=== PATIENT | female | born 1950 | race Caucasian/White ===

== ENCOUNTER 2021-04-11 22:43 | Emergency (ER) | payer MEDICARE ==
[~2021-04-11] VITALS: Ht 167.6 cm; Wt 54.4 kg
--- NOTE | 2021-04-11 22:58 | NUR ---
Dr. Hernandez at bedside for MSE.
[2021-04-11] MEDS ORDERED: IV NORMAL SALINE 500 ML BAG IV ONE (23:15)
[2021-04-11] MEDS ORDERED: ONDANSETRON 4 MG/2 ML VIAL IV ONE (23:15)
[2021-04-11 23:18] LABS: HEMATOCRIT 32.8 % (31.2-41.9); MEAN CORPUSCULAR HEMOGLOBIN 27.5 uug (24.7-32.8); MEAN CORPUSCULAR VOLUME 83.7 fL (75.5-95.3); PLATELET COUNT (AUTO) 401 K/uL (179-408)
--- NOTE | 2021-04-11 23:18 | NUR ---
Xray at bedside.
[2021-04-11] MEDS ORDERED: ONDANSETRON 4 MG/2 ML VIAL ONE (23:20)
[2021-04-11 23:28] LABS: CREATININE 0.8 mg/dL (0.6-1.3); POTASSIUM 4.1 mmol/L (3.5-5.1)
--- NOTE | 2021-04-11 23:54 | NUR ---
Patient discharged to home in stable condition. Written and verbal after care instructions given. Patient verbalizes understanding of instructions. Stressed follow up or return to ER for worsening s/s. Patient out of ER via wheelchair, no acute signs of distress, VSS, all belongings taken, IV site discontinued, assisted patient on transfer to car, no falls noted, to be driven home via private vehicle by son.
[2021-04-11 23:56] VITALS: BP 140/72
== END 2021-04-11 23:56 | disposition home or self-care (01) ==
LOC: ER 22:43
DX: R55 Syncope and collapse (principal); Z88.1 Allergy status to other antibiotic agents; Z88.0 Allergy status to penicillin; D49.89 Neoplasm of unspecified behavior of other specified sites; Z87.09 Personal history of other diseases of the respiratory system
CPT/HCPCS: 36415; 71045; 80048; 84484; 85025; 93005; 96361; 96374; 99285; J2405; 70030-TC; A4663; J7040